=== PATIENT | female | born 1990 | race Caucasian/White ===

== ENCOUNTER 2016-07-10 17:56 | Emergency (ER) | payer BC ==
--- NOTE | 2016-07-10 19:28 | EDM.PDOC ---
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 . LMP 2016. She states that she developed some brown spotting this past weekend. She was seen by Dr. Mobley this morning where a pelvic exam and pelvic ultrasound were performed, along with blood work. She states that the ultrasound demonstrated a single intrauterine , but that no heartbeat was seen. Estimated date 6 weeks. She states that she began passing blood clots, less than one per hour, along with pelvic cramps, around 17:30 tonight. - Related Data Allergies/ADRs: Allergies Allergy/AdvReac Type Severity Reaction Status Date / Time No Known Allergies Allergy Verified 07/10/16 18:02 Home Meds: Home Meds Vit No.129/Iron/FA [ Tablet] 1 each PO DAILY 07/10/16 [History] Past Medical History - Past Surgical History HEENT Surgical History: Reports: Oral surgery ([place] teeth extraction) Social & Family History - Tobacco Use Smoking Status *Q: Never Smoker Second Hand Smoke Exposure: No - Caffeine Use Caffeine Use: Reports: Tea - Alcohol Use Alcohol Use History: Yes Alcohol Use Frequency: Socially - Recreational Drug Use Recreational Drug Use: No - Living Situation & Occupation Living situation: Reports: , with spouse 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[employer]) ED ROS GENERAL - Review of Systems Review Of Systems: See Below Constitutional: Reports: no symptoms HEENT: Reports: Other (Recent viral URI symptoms) Respiratory: Reports: No Symptoms Cardiovascular: Reports: No symptoms Endocrine: Reports: no symptoms GI/Abdominal: Reports: No symptoms : Reports: no symptoms Musculoskeletal: Reports: no symptoms Skin: Reports: no symptoms Neurological: Reports: No Symptoms Psychiatric: Reports: No symptoms Hematologic/Lymphatic: Reports: no symptoms Immunologic: Reports: no symptoms ED EXAM - Physical Exam Exam: See Below Exam Limited By: No limitations General Appearance: alert, WD/WN, no apparent distress Eye Exam: bilateral eye: EOMI, normal inspection Ears: normal external exam, hearing grossly normal Nose: normal inspection, no blood Throat/Mouth: Normal inspection, Normal lips, Normal voice, No airway compromise Head: atraumatic, normocephalic Neck: normal inspection, full range of motion Respiratory/Chest: no respiratory distress, lungs clear, normal breath sounds, no accessory muscle use, chest non-tender Cardiovascular: normal peripheral pulses, regular rate, rhythm, no edema, no gallop, no JVD, no murmur, no rub GI/Abdominal: normal bowel sounds, soft, no organomegaly, no distention, no abnormal bruit, no mass, tender (mild, LUQ only. Nontender elsewhere.) (Female) Exam: Normal external exam, Vaginal bleeding (thin trickle of blood from closed nulliparous cervix). No: Cervical dilatation, tissue present in cervix/vagina Extremities: normal inspection, normal range of motion, normal capillary refill Neurological: alert, oriented, normal cognition, no motor/sensory deficits Psychiatric: normal affect Skin Exam: Warm, Dry, Intact, Normal color, No rash Lymphatic: no adenopathy Course - Vital Signs Last Recorded V/S: Last Vital Signs Temp 36.7 C 07/10/16 18:03 Pulse 77 07/10/16 18:03 Resp 12 07/10/16 18:03 BP 110/74 07/10/16 18:03 Pulse Ox 100 07/10/16 18:03 - Re-Assessments/Exams Free Text/Narrative Re-Assessment/Exam: 07/10/16 21:00 The patient was evaluated by Dr. Mobley, here in the ED. He also finds a trace amount of cervical bleeding. He offered D&C or medical treatment, however, the patient declined. She is aware that she should return if her symptoms worsen. Departure - Departure Time of Disposition: 21:01 Disposition: Home, Self-Care 01 Condition: fair Clinical Impression: Threatened Instructions: Threatened Miscarriage, [id number] Referrals: Edison Rice MD [Primary Care Provider] - Forms: ED Department Discharge Additional Instructions: You were seen in the emergency room tonight for vaginal bleeding and uterine cramps. On examination, you have a small amount of vaginal bleeding. Your earlier ultrasound does not show the source. This condition is considered a threatened . Followup with Dr. Rice at your previously scheduled appointment this coming Sunday, 07/19/0.17. If your symptoms worsen prior to then, please followup with Dr. Mobley or return to the ER.
--- NOTE | 2016-07-10 20:41 | PCM.SN ---
- Free Text/Narrative Note: 25 Y/O LMP 05/09/16 EGA by LMP 8/6d and by [facility] today 6w0d. Seen in ER with increased vaginal bleeding, some cramping and passing two 25 cent piece size clots. O positive. Exam revealed about 2 ml old dark blood in os. No active bleeding. Uterus ULNS, no adnexal masses Imp: Threatened O20.0 Discussed alternatives continued observation, Cytotec, D&C. Patient and selected continued observation. Return in increased symptoms, otherwise keep appointment with Dr Rice next week.
== END 2016-07-10 21:10 | disposition home or self-care (01) ==
LOC: JD.ED 17:56
CPT/HCPCS: 99283; 99284